=== PATIENT | female | born 1980 | race Two or more races ===

== ENCOUNTER 2020-08-01 16:13 | Inpatient (IN) | payer OTHER ==
[~2020-08-01] VITALS: Wt 5.0 kg
[2020-08-01] MEDS ORDERED: PROZAC20 MG (16:28)
[2020-08-01] MEDS ORDERED: VISTARIL50 MG (16:28)
== END 2020-08-03 13:55 | disposition home or self-care (01) | DRG 310 ==
LOC: ER 16:13 → SEC-K 08-02 08:08 → MEDI 08-02 17:49
PROVIDERS: ADMIT Internal Medicine; ATTEND Internal Medicine
PROC: 3E0F7SF Introduction of Other Gas into Respiratory Tract, Via Natural or Artificial Opening (ICD-10-PCS; 2020-08-01)
PROC: BW21ZZZ Computerized Tomography (CT Scan) of Abdomen and Pelvis (ICD-10-PCS; principal; 2020-08-02)
PROC: B24BYZZ Ultrasonography of Heart with Aorta using Other Contrast (ICD-10-PCS; 2020-08-02)
PROC: 4A12X4Z Monitoring of Cardiac Electrical Activity, External Approach (ICD-10-PCS; 2020-08-02)
DX: I47.1 Supraventricular tachycardia (principal); F41.8 Other specified anxiety disorders; F41.0 Panic disorder [episodic paroxysmal anxiety]

== ENCOUNTER 2021-01-03 11:05 | Inpatient (IN) | payer OTHER ==
[~2021-01-03] VITALS: Ht 152.4 cm; Wt 68.0 kg
[~2021-01-03 11:05] MED LIST: PROZAC20 MG; VISTARIL50 MG
[2021-01-03] MEDS ORDERED: NEURONTIN800 MG PO (11:14)
[2021-01-03] MEDS ORDERED: TOPROL XL25 M1 PO (11:15)
--- NOTE | 2021-01-03 11:15 | NUR ---
SE RECIBE PTE ALERTA Y ORIENTADA X3,REFIERE TENER DOLOR EN LE FLCOREYO MAIA ,TAMMI BRICEÑO ,REFIERE EN EL FITAMMY,LITOTRICIA Y EDNA G
--- NOTE | 2021-01-03 11:54 | NUR ---
RN GUO ORIENTA A PTE SOBRE TRATAMIENTO A SEGUIR, IRWIN REFIERE ENTENDER. LE COLECTA MUESTRAS, SE CANALIZA Y SE ADMINISTRA MEDICAMENTO LORI ORDEN MEDICA UTILIZANDO MEDIDAS ASEPTICAS. PENDIENTE U/A, U/C
== END 2021-01-07 14:49 | disposition home or self-care (01) | DRG 694 ==
LOC: ER 11:05 → MEDI 15:46 → SEC-K 15:46 → MEDI 01-04 01:41
PROVIDERS: ADMIT Internal Medicine; ATTEND Internal Medicine
PROC: BW21ZZZ Computerized Tomography (CT Scan) of Abdomen and Pelvis (ICD-10-PCS; principal; 2021-01-03)
DX: N20.0 Calculus of kidney (principal); N39.0 Urinary tract infection, site not specified; E87.6 Hypokalemia; N75.0 Cyst of Bartholin's gland; N76.0 Acute vaginitis; R31.29 Other microscopic hematuria; B96.89 Other specified bacterial agents as the cause of diseases classified elsewhere; I10 Essential (primary) hypertension

== ENCOUNTER 2021-11-04 09:24 | Emergency (ER) | payer OTHER ==
[~2021-11-04] VITALS: Ht 152.4 cm; Wt 60.8 kg
[~2021-11-04 09:24] MED LIST changes: +NEURONTIN800 MG PO; +TOPROL XL25 M1 PO
[2021-11-04] MEDS ORDERED: ZESTRIL10 M1 (10:03)
[2021-11-04] MEDS ORDERED: NYSTATIN15 G2 TOP (12:20)
[2021-11-04] MEDS ORDERED: ZITHROMAX200 MG PO (12:20)
== END 2021-11-04 12:45 | disposition home or self-care (01) ==
LOC: ER 09:24
DX: A49.3 Mycoplasma infection, unspecified site (principal); Z20.828 Contact with and (suspected) exposure to other viral communicable diseases

== ENCOUNTER → 2022-01-17 | Emergency (ER) | payer OTHER ==
[~2022-01-17] VITALS: Ht 152.4 cm; Wt 58.5 kg
[~2022-01-17] MED LIST changes: +NYSTATIN15 G2 TOP; +ZESTRIL10 M1; +ZITHROMAX200 MG PO
== END | disposition home or self-care (01) ==
LOC: ER 09:50
DX: J40 Bronchitis, not specified as acute or chronic (principal); Z88.1 Allergy status to other antibiotic agents; Z88.8 Allergy status to other drugs, medicaments and biological substances

== ENCOUNTER 2022-04-19 04:10 | Emergency (ER) | payer OTHER ==
[~2022-04-19] VITALS: Ht 152.4 cm; Wt 60.8 kg
[2022-04-19] MEDS ORDERED: NEURONTIN800 MG PO (04:18)
[2022-04-19] MEDS ORDERED: ZESTRIL10 M1 PO (04:18)
[2022-04-19] MEDS ORDERED: VISTARIL50 MG PO (04:18)
[2022-04-19] MEDS ORDERED: TOPROL XL50 M1 PO (04:18)
[2022-04-19] MEDS ORDERED: PROZAC20 MG PO (04:18)
== END 2022-04-19 18:58 | disposition home or self-care (01) ==
LOC: ER 04:10
DX: N20.0 Calculus of kidney (principal); N13.30 Unspecified hydronephrosis; Z88.1 Allergy status to other antibiotic agents; R10.9 Unspecified abdominal pain; R11.2 Nausea with vomiting, unspecified